=== PATIENT | female | born 1975 | race Caucasian/White ===

== ENCOUNTER → 2017-05-03 | Outpatient (CLI) | payer BC ==
[~2017-05-03] MED LIST: CRESTOR PO; FENOGLIDE40 MG; FLEXERIL10 MG PO; HYDROCODON-ACE1 EAC4 PO; HYDROCODONE-APA1 T33 PO; IBUPROFEN PO; IBUPROFEN800 MG PO; LOVAZA1 G PO; PARAFON FORTE500 MG PO
--- NOTE | ~2017-05-03 | CR242 ---
[facility] A Service of [facility] RADIOLOGY TEXT RESULTS PATIENT: KELECHI LANGE LOCATION: [facility] : 71 UNIT #: [id number] AGE: [address]: Caitlin Blank MD SEX: F ORDER DR: [id number] [address] [address] [id number] O MR#: [id number] Acc #: [id number] NAME: KELECHI LANGE : 1975 SEX: F STUDY DATE/TIME: 05/03/2017 12:14 UNIT: [facility] ROOM: STUDY DESCRIPTION: CR Thoracic Spine 2 Views Attending Physician: Caitlin Blank M.D. Referring Physician: Caitlin Blank M.D. Ordering Physician: Caitlin Blank M.D. Primary Care Physician: Caitlin Blank M.D. MEDICAL IMAGING REPORT This report is preliminary unless electronic signature is present. EXAM Thoracic spine series dated 05/03/2017 COMPARISON Lumbar spine series dated 05/03/2017 HISTORY Patient fell down the stairs two weeks ago. Knee pain since then. Patient also has back pain, but it has been going on for many years. FINDINGS Three views of the thoracic spine were obtained. AP and lateral examination of the dorsal segment shows normal mineralization and a satisfactory anatomical dorsal kyphosis. All body heights, interspaces, and posterior elements are normal anatomically without any indication of malignancy, trauma, unusual paraspinal soft tissue density mass, or congenital defect. IMPRESSION Normal thoracic spine. Dictated by... Jose Saucedo M.D. THIS IS AN ELECTRONICALLY VERIFIED REPORT Jose Saucedo M.D. at 05/04/2017 2:24 PM CPR/to [facility] A Service of [facility] RADIOLOGY TEXT RESULTS PATIENT: KELECHI LANGE LOCATION: [facility] : 71 UNIT #: [id number] AGE: [address]: Caitlin Blank MD SEX: F ORDER DR: TD: 05/03/2017 17:07 JOB #: [id number] MEDICAL IMAGING REPORT Page 1 of 1
--- NOTE | ~2017-05-03 | CR173 ---
[facility]. [facility] A Service of [facility] RADIOLOGY TEXT RESULTS PATIENT: KELECHI LANGE LOCATION: [facility] : 71 UNIT #: [id number] AGE: [address]: Caitlin Blank MD SEX: F ORDER DR: [id number] [place] [id number] O MR#: [id number] Acc #: [id number] NAME: KELECHI LANGE : 1975 SEX: F STUDY DATE/TIME: 05/03/2017 12:14 UNIT: [facility] ROOM: STUDY DESCRIPTION: CR Knee 3 Views Rt Attending Physician: Caitlin Blank M.D. Referring Physician: Caitlin Blank M.D. Ordering Physician: Caitlin Blank M.D. Primary Care Physician: Caitlin Blank M.D. MEDICAL IMAGING REPORT This report is preliminary unless electronic signature is present. EXAM Right knee, 3 views. DATE OF EXAM 05/03/2017 HISTORY Right knee pain, status post fall 2 weeks ago down steps. Persistent pain. FINDINGS AP and lateral projection of the knee shows smooth articular anatomy without indication of fracture or dislocation at the major weight-bearing surface of the knee. There is no indication of radiopaque foreign body about the knee surface or joint effusion. IMPRESSION Normal right knee. Dictated by... Carlos Mae M.D. THIS IS AN ELECTRONICALLY VERIFIED REPORT Carlos Mae M.D. at 05/05/2017 8:19 AM KARO/thiago TD: 05/03/2017 19:52 JOB #: [id number] MEDICAL IMAGING REPORT Page 1 of 1
--- NOTE | ~2017-05-03 | CR181 ---
[facility] A Service of [facility] RADIOLOGY TEXT RESULTS PATIENT: KELECHI LANGE LOCATION: [facility] : 71 UNIT #: [id number] AGE: [address]: Caitlin Blank MD SEX: F ORDER DR: [id number] [address] [address] [id number] O MR#: [id number] Acc #: [id number] NAME: KELECHI LANGE : 1975 SEX: F STUDY DATE/TIME: 05/03/2017 12:14 UNIT: [facility] ROOM: STUDY DESCRIPTION: CR Lumbar Spine 2 or 3 Views Attending Physician: Caitlin Blank M.D. Referring Physician: Caitlin Blank M.D. Ordering Physician: Caitlin Blank M.D. Primary Care Physician: Caitlin Blank M.D. MEDICAL IMAGING REPORT This report is preliminary unless electronic signature is present. EXAM Lumbar spine series dated 05/03/2017 COMPARISON Thoracic spine series dated 05/03/2017 HISTORY Patient fell two weeks ago. Median back pain. Back pain is chronic. FINDINGS Three views of the lumbar spine were obtained. AP and lateral projections of the lumbar segment show good mineralization of both anterior and posterior elements. They are all anatomically normal without indication of fracture, dislocation, or malignant change of a sclerotic or lytic type. There is no congenital defect noted. The sacroiliac joints are normal. There is a small osteophyte noted along the anterosuperior aspect of L4. IMPRESSION Normal lumbar spine. Dictated by... Jose Saucedo M.D. THIS IS AN ELECTRONICALLY VERIFIED REPORT Jose Saucedo M.D. at 05/04/2017 2:24 PM CPR/to TD: 05/03/2017 17:06 JOB #: [id number] [facility] A Service of [facility] RADIOLOGY TEXT RESULTS PATIENT: KELECHI LANGE LOCATION: [facility] : 71 UNIT #: [id number] AGE: [address]: Caitlin Blank MD SEX: F ORDER DR: MEDICAL IMAGING REPORT Page 1 of 1
== END | disposition home or self-care (01) ==
LOC: SRAD 11:47
DX: M51.36 Other intervertebral disc degeneration, lumbar region (principal); M17.0 Bilateral primary osteoarthritis of knee
CPT/HCPCS: 72070; 72100; 73562